=== PATIENT | male | born 1975 | race Caucasian/White ===

== ENCOUNTER 2017-04-08 13:14 | Emergency (ER) | payer OTHER ==
[~2017-04-08] VITALS: Ht 175.3 cm; Wt 119.2 kg
[2017-04-08 13:19] VITALS: TEMP 36.7; Ht 175.3 cm; Wt 119.2 kg
[2017-04-08] MEDS ORDERED: DIPHTHERIA/TETANUS/PERTUSSIS 0.5 ML SYR/VIAL IM. ONE (14:00)
--- NOTE | 2017-04-08 14:05 | EMERGENCY ROOM VISIT NOTE ---
ED Visit Note First contact with patient: 13:23 CHIEF COMPLAINT: Second degree Burn HISTORY OF PRESENT ILLNESS: This 41-year-old male patient presents to the emergency department after they sustained a burn injury to the scalp and forehead. This occurred just prior to arrival at work. The patient states that he was flushing out the radiator of the car. He states that he had radiator flush which he believes was muriatic acid mixed with baking soda and hot water that got spilled onto his scalp and forehead. The patient complains of swelling and pain over the forehead rated as 7/10. Pain is worse with movement and pressure. Sensation is still present. There is blistering. No other injury sustained. Tetanus shot is not up to date. REVIEW OF SYSTEMS: A 6 system review of systems was completed with positives and pertinent negatives listed in the HPI. ALLERGIES: None MEDICATIONS: None PMH: None SOCIAL HISTORY: The patient is employed. He does not smoke PHYSICAL EXAM: Vital Signs reviewed, see Nurse's notes, vital signs stable. GENERAL: Since 11-year-old male, awake, alert, well appearing, no acute distress HEENT: Normocephalic, atraumatic. No carbonaceous sputum or singed nasal hair. Oropharynx without edema or erythema. NECK: No stridor LUNGS: Clear to auscultation. No wheezes or rales. CARDIAC: Regular rate, normal rhythm MUSCULOSKELETAL: No gross deformity. SKIN: There is a partial thickness burn to the forehead and scalp and is 1 % BSA. The burn is not circumferential. No signs of infection or foreign body. There is no skin sloughing. NEURO: No sensory or motor deficits noted over all dermatomes and myotomes tested. EMERGENCY DEPARTMENT COURSE AND DECISION MAKING: I examined the patient. The patient presented with an isolated scalp burn as above. No signs of airway involvement or smoke inhalation. There is no critical body part involvement or burn severity to warrant burn center referral. ER Treatment: I spoke with poison control given the potential acid burn and they recommend flush and symptomatic care I also spoke with [facility] Naldo who recommended tetanus, clean, bacitracin and follow up next week The patient declined pain medication Discharge instructions reviewed. The patient was discharged home in stable condition. Vital Signs Date Time Temp Pulse Resp B/P (MAP) Pulse Ox O2 Delivery O2 Flow Rate FiO2 04/08/17 14:16 71 16 187/87 94 04/08/17 13:19 36.7 77 18 155/96 95 Room Air Medications Administered Medications (Trade) Dose Ordered Sig/Gayle Route Start Time Stop Time Status Last Admin Dose Admin Diphtheria/ Pertussis/Tetanus Vacc (Adacel Inj) 0.5 ml ONCE ONCE IM. 04/08/17 14:00 04/08/17 14:01 DC 04/08/17 13:59 0.5 ML Departure Information Impression Primary Impression: Thermal burn Additional Impressions: Chemical burn Second degree burn Work related injury Dispostion Home / Self-Care Condition GOOD Referrals Dimas Cesar D.O. (PCP) Forms HOME CARE DOCUMENTATION FORM, IMPORTANT VISIT INFORMATION Patient Instructions My [facility] Spotlime Additional Instructions Keep the area clean and dry Apply antibiotic ointment daily Recheck with an employer approved worker's compensation doctor next week Return with worsening symptoms, redness, swelling, warmth Problem Qualifiers
[2017-04-08 14:16] VITALS: BP 187/87; PULSE 71; O2SAT 94
== END 2017-04-08 14:18 | disposition home or self-care (01) ==
LOC: C.EDB 13:17 → C.EDD 14:18
DX: T20.25XA Burn of second degree of scalp [any part], initial encounter (principal); T20.26XA Burn of second degree of forehead and cheek, initial encounter; T20.65XA Corrosion of second degree of scalp [any part], initial encounter; T20.66XA Corrosion of second degree of forehead and cheek, initial encounter; T31.0 Burns involving less than 10% of body surface; T54.2X1A Toxic effect of corrosive acids and acid-like substances, accidental (unintentional), initial encounter; T50.991A Poisoning by other drugs, medicaments and biological substances, accidental (unintentional), initial encounter; X12.XXXA Contact with other hot fluids, initial encounter; Y93.89 Activity, other specified; Y99.0 Civilian activity done for income or pay; Z23 Encounter for immunization